=== PATIENT | female | born 1980 | race American Indian/Alaskan Native ===

== ENCOUNTER 2019-02-04 23:00 | Emergency (ER) | payer SELFPAY ==
[2019-02-04 23:05] VITALS: BMI 27.4
[2019-02-04 23:09] VITALS: RESP 18; TEMP 98; O2SAT 100
[2019-02-04] MEDS ORDERED: Sodium Chloride 0.9% 1,000 ML IV STA (23:12)
[2019-02-04] MEDS: Albuterol-Ipratrop 3 mg / 0.5 (3 ml) UD IH SCH ×3 (23:15→23:51)
--- NOTE | 2019-02-04 23:17 | ED PDOC ---
Arrival/HPI <Reji Madera - Last Filed: 02/05/19 00:07> - General Historian: Patient - History of Present Illness Narrative History of Present Illness (Text): 02/04/19 23:14 38 y/o female with PMH of asthma presents to the ED c/o SOB and chest tightness x 2 days. States symptoms feel like her asthma. Associated intermittent lightheadedness, sore throat, and productive cough. She has been using her albuterol nebulizer without relief, she thinks it may be . No recent travel or sick contacts. Denies fever, chills, abdominal pain, nausea, vomiting, chest pain, syncope, palpitations, calf pain or swelling, hemoptysis, back pain, neck pain, drooling, throat swelling, visual changes, numbness, weakness, paresthesias, or any other associated complaints. <Christine Bowser - Last Filed: 02/05/19 15:08> - General Chief Complaint: Shortness Of Breath Time Seen by Provider: 02/04/19 23:01 Past Medical History - Provider Review Nursing Documentation Reviewed: Yes - Cardiac Hx Cardiac Disorders: No - Pulmonary Hx Respiratory Disorders: Yes Hx Asthma: Yes Hx Bronchitis: Yes - HEENT Hx HEENT Disorder: No - Renal Hx Renal Disorder: No - Endocrine/Metabolic Hx Endocrine Disorders: No - Hematological/Oncological Hx Blood Disorders: No - Integumentary Hx Dermatological Disorder: No - Musculoskeletal/Rheumatological Hx Musculoskeletal Disorders: No - Gastrointestinal Hx Gastrointestinal Disorders: No - Genitourinary/Gynecological Hx Genitourinary Disorders: No - Psychiatric Hx Psychophysiologic Disorder: No Hx Substance Use: No <Christine Bowser - Last Filed: 02/05/19 15:08> Family/Social History - Physician Review Nursing Documentation Reviewed: Yes Family/Social History: No Known Family HX Smoking Status: Never Smoked Hx Alcohol Use: Yes Frequency of alcohol use: Socially Hx Substance Use: No <Christine Bowser - Last Filed: 02/05/19 15:08> Allergies/Home Meds <Reji Madera - Last Filed: 02/05/19 00:07> <Christine Bowser - Last Filed: 02/05/19 15:08> Allergies/Adverse Reactions: Allergies No Known Allergies Allergy (Verified 02/04/19 23:05) Review of Systems - Review of Systems Constitutional: Normal Eyes: Normal ENT: Sore Throat, Sinus Congestion. absent: Hearing Changes, Tinnitus Respiratory: SOB, Cough, Sputum, Wheezing Cardiovascular: Normal. absent: Chest Pain, Palpitations, Syncope Gastrointestinal: Normal. absent: Abdominal Pain, Stool Changes, Nausea, Vomiting, Appetite Changes Genitourinary Female: Normal. absent: Dysuria, Frequency, Vaginal Bleeding, Vaginal Discharge Musculoskeletal: Normal. absent: Back Pain, Neck Pain Skin: Normal. absent: Rash Neurological: Dizziness. absent: Headache, Focal Weakness, Gait Changes, Speech Changes, Facial Droop, Disequilibrium <Christine Bowser - Last Filed: 02/05/19 15:08> Physical Exam Vital Signs Temp Pulse Resp BP Pulse Ox 02/04/19 23:52 98 F 95 H 18 139/85 100 02/04/19 23:06 98 F 94 H 18 154/98 H 100 <Reji Madera - Last Filed: 02/05/19 00:07> Vital Signs Reviewed: Yes Vital Signs Temp Pulse Resp BP Pulse Ox 02/04/19 23:06 98 F 94 H 18 154/98 H 100 Temperature: Afebrile Blood Pressure: Hypertensive Pulse: Regular Respiratory Rate: Normal Appearance: Positive for: Well-Appearing, Non-Toxic, Comfortable Pain Distress: None Mental Status: Positive for: Alert and Oriented X 3 - Systems Exam Head: Present: Atraumatic, Normocephalic Pupils: Present: PERRL Extroacular Muscles: Present: EOMI Conjunctiva: Present: Normal Ears: Present: Normal, NORMAL TM, Normal Canal Mouth: Present: Moist Mucous Membranes Pharnyx: Present: Normal. No: ERYTHEMA, EXUDATE, TONSILS ENLARGED Neck: Present: Normal Range of Motion. No: Meningeal Signs Respiratory/Chest: Present: Wheezes (diffuse, inspiratory and expiratory bilate rally), Decreased Breath Sounds (bilaterally). No: Respiratory Distress, Accessory Muscle Use, Rales, Retracting, Rhonchi, Tachypneic Cardiovascular: Present: Regular Rate and Rhythm, Normal S1, S2 Abdomen: Present: Normal Bowel Sounds. No: Tenderness, Distention, Peritoneal Signs, Rebound, Guarding Back: Present: Normal Inspection. No: CVA Tenderness Upper Extremity: Present: Normal Inspection, Normal ROM, NORMAL PULSES, Neurovascularly Intact, Capillary Refill < 2s. No: Cyanosis, Edema, Temperature Abnormalties Lower Extremity: Present: Normal Inspection, NORMAL PULSES, Normal ROM, Neurovascularly Intact, Capillary Refill < 2 s. No: Edema, CALF TENDERNESS, Ten derness, Swelling, Temperature Abnormalties Neurological: Present: GCS=15, CN II-XII Intact, Speech Normal, Motor Func Grossly Intact, Normal Sensory Function, Gait Normal Skin: Present: Warm, Dry, Normal Color. No: Rashes, Hot Psychiatric: Present: Alert, Oriented x 3, Normal Insight, Normal Concentration, Normal Affect, Normal Mood <Christine Bowser - Last Filed: 02/05/19 15:08> Medical Decision Making - Lab Interpretations Lab Results: PT 10.8 SECONDS (9.4-12.5) 02/04/19 23:00 INR 0.97 02/04/19 23:00 APTT 33.5 Seconds (26.9-38.3) 02/04/19 23:00 Troponin I < 0.01 ng/mL 02/04/19 23:00 Total Bilirubin 0.2 mg/dL (0.2-1.3) 02/04/19 23:00 AST 26 U/L (14-36) 02/04/19 23:00 ALT 7 U/L (7-56) 02/04/19 23:00 Alkaline Phosphatase 68 U/L (38-126) 02/04/19 23:00 Total Protein 7.9 g/dL (5.8-8.3) 02/04/19 23:00 Albumin 4.1 g/dL (3.0-4.8) 02/04/19 23:00 Globulin 3.8 gm/dL 02/04/19 23:00 Albumin/Globulin Ratio 1.1 (1.1-1.8) 02/04/19 23:00 Urine Color Light red (YELLOW) 02/04/19 23:34 Urine Appearance Cloudy (CLEAR) 02/04/19:34 Urine pH 8.0 (4.7-8.0) 02/04/19 23:34 Ur Specific [place] 1.020 (1.005-1.035) 02/04/19 23:34 Urine Protein 30 mg/dL (<30 mg/dL) H 02/04/19 23:34 Urine Glucose (UA) Negative mg/dL (NEGATIVE) 02/04/19 23:34 Urine Ketones Negative mg/dL (NEGATIVE) 02/04/19 23:34 Urine Blood Large (NEGATIVE) H 02/04/19 23:34 Urine Nitrate Negative (NEGATIVE) 02/04/19 23:34 Urine Bilirubin Negative (NEGATIVE) 02/04/19 23:34 Urine Urobilinogen 0.2 E.U./dL (<1 E.U./dL) 02/04/19 23:34 Ur Leukocyte Esterase Trace [place]/uL (NEGATIVE) H 02/04/19 23:34 Urine HCG, Qual Negative (NEGATIVE) 02/04/19 23:34 Urine HCG, Qual Negative (NEGATIVE) 02/04/19 23:34 - RAD Interpretation Radiology Orders: 02/04/19 23:12 CHEST PORTABLE [RAD] Stat - Medication Orders Current Medication Orders: Sodium Chloride (Sodium Chloride 0.9%) 1,000 mls @ 999 mls/hr IV .Q1H1M STA Stop: 02/05/19 00:12 Last Admin: 02/04/19 23:41 Dose: 999 mls/hr eMAR Start Stop Document 02/04/19 23:41 ROBBIN (Rec: 02/04/19 23:42 ROBBIN [id number]) Intravenous Solution Start Date 02/04/19 Start Time 23:41 End Date 02/05/19 End time 00:42 Total Infusion Time 61 Discontinued Medications Albuterol/Ipratropium (Duoneb 3 Mg/0.5 Mg (3 Ml) Ud) 3 ml IH Q15M SHAMAR Stop: 02/04/19 23:46 Last Admin: 02/04/19 23:51 Dose: 3 ml Methylprednisolone (Solu-Medrol) 125 mg IVP STAT STA Stop: 02/04/19 23:13 Last Admin: 02/04/19 23:41 Dose: 125 mg IVP Administration Document 02/04/19 23:41 LA (Rec: 02/04/19 23:41 LA [id number]) Charges for Administration # of IVP Administrations 1 <Reji Madera - Last Filed: 02/05/19 00:07> ED Course and Treatment: 02/04/19 23:20 Initial Plan: * CBC, CMP * Coags * UA * Troponin * EKG * CXR * IVF * Solumedrol * Duoneb x 3 EKG shows NSR at 91 without STEMI or other ischemic changes Bloodwork reviewed, unremarkable UA shows no infection Troponin negative CXR negative for active disease as read by me Patient reports improvement in symptoms with duonebs and steroid. States the duonebs made her feel slightly anxious. Lung exam has improved. Decreased wheezing bilaterally. Diagnostic testing results and plan of care discussed with patient. Strict instructions given regarding prescription use, importance of followup, and signs/symptoms to return to ER including fever, chest pain, abdominal pain, or any other new/worsening symptoms. Pt verbalized understanding of discussion. Patient is A&Ox3, ambulating with steady gait, with vital signs stable for discharge. - Lab Interpretations Lab Results: 02/04/19 23:00 02/04/19 23:00 Lab Results 02/04/19 23:34: Grp A Beta Strep Ag Negative 02/04/19 23:34: Influenza Typ A,B (EIA) Negative for flu a/b 02/04/19 23:34: Urine Color Light red, Urine Appearance Cloudy, Urine pH 8.0, Ur Specific [place] 1.020, Urine Protein 30 H, Urine Glucose (UA) Negative, Urine Ketones Negative, Urine Blood Large H, Urine Nitrate Negative, Urine Bilirubin Negative, Urine Urobilinogen 0.2, Ur Leukocyte Esterase Trace H, Urine RBC Tntc H, Urine WBC 2 - 5, Ur Epithelial Cells 6 - 8 H, Urine Bacteria Few, Urine HCG, Qual Negative 02/04/19 23:00: PT 10.8, INR 0.97, APTT 33.5 02/04/19 23:00: Sodium 140, Potassium 4.2, Chloride 104, Carbon Dioxide 28, Anion Gap 12, BUN 12, Creatinine 0.7, Est GFR ( Amer) > 60, Est GFR (Non- Af Amer) > 60, Random Glucose 113 H, Calcium 8.7, Magnesium 2.0, Total Bilirubin 0.2, AST 26, ALT 7, Alkaline Phosphatase 68, Lactate Dehydrogenase 354, Total Creatine Kinase 85, Troponin I < 0.01, Total Protein 7.9, Albumin 4.1, Globulin 3.8, Albumin/Globulin Ratio 1.1 02/04/19 23:00: WBC 8.7, RBC 4.09, Hgb 11.4 L, Hct 35.2 L, MCV 86.1, MCH 27.9, MCHC 32.4, RDW 14.2, Plt Count 297, MPV 9.5, Neut % (Auto) 62.6, Lymph % (Auto) 31.2, [place] % (Auto) 4.4, Eos % (Auto) 1.7, Baso % (Auto) 0.1, Lymph # (Auto) 2.7, [place] # (Auto) 0.4, Eos # (Auto) 0.2, Baso # (Auto) 0.01, Absolute Neuts (auto) 5.43 I have reviewed the lab results: Yes - RAD Interpretation Radiology Orders: 02/04/19 23:12 CHEST PORTABLE [RAD] Stat - EKG Interpretation EKG Interpretation (Text): Rate 91; NSR; Normal intervals; Normal axis; No STEMI or other signs of acute ischemia Interpreted by ED Physician: Yes Type: 12 lead EKG - Medication Orders Current Medication Orders: Albuterol/Ipratropium (Duoneb 3 Mg/0.5 Mg (3 Ml) Ud) 3 ml IH Q15M SHAMAR Stop: 02/04/19 23:46 Sodium Chloride (Sodium Chloride 0.9%) 1,000 mls @ 999 mls/hr IV .Q1H1M STA Stop: 02/05/19 00:12 Methylprednisolone (Solu-Medrol) 125 mg IVP STAT STA Stop: 02/04/19 23:13 <Christine Bowser - Last Filed: 02/05/19 15:08> - PA / [employer] TOBACCO / Resident Statement /DO has reviewed & agrees with the documentation as recorded. <Reji Madera - Last Filed: 02/05/19 00:07> Disposition/Present on Arrival <Reji Madera - Last Filed: 02/05/19 00:07> - Present on Arrival Any Indicators Present on Arrival: No History of DVT/PE: No History of Uncontrolled Diabetes: No Urinary Catheter: No History of Decub. Ulcer: No History Surgical Site Infection Following: None - Disposition Have Diagnosis and Disposition been Completed?: Yes Disposition Time: 01:10 Patient Plan: Discharge <Christine Bowser - Last Filed: 02/05/19 15:08> - Disposition Diagnosis: Asthma exacerbation, Lower resp. tract infection Disposition: HOME/ ROUTINE Condition: IMPROVED Discharge Instructions (ExitCare): Asthma, Adult (DC), Acute Bronchitis, Adult (DC) Additional Instructions: Prednisone 2 tabs daily for 4 days Azithromycin 1 tab daily for 4 more days Ventolin 2 puffs every 6 hours as needed Increase fluids Followup with primary doctor tomorrow Return to ER with any new/worsening symptoms Prescriptions: Albuterol Sulfate [Ventolin Hfa] 2 puff IH Q6 #1 pump Azithromycin [Zithromax] 250 mg PO DAILY #4 tab predniSONE [predniSONE Tab] 40 mg PO DAILY #8 tab Referrals: [facility] [place] [Outside] - Follow up with primary Tracee Condon MD [Medical Doctor] - Follow up with primary Forms: [facility] (Azerbaijani), WORK NOTE
[2019-02-04 23:32] LABS: BASO # 0.01 K/mm3 (0.0-2.0); BASO % 0.1 % (0.0-3.0); EOS # 0.2 (0.0-0.7); EOS % 1.7 % (1.5-5.0); HEMOGLOBIN 11.4 g/dL (12.0-16.0); LYMPH # 2.7 (1.2-3.4); LYMPH % 31.2 % (22.0-35.0); MEAN CELL VOLUME 86.1 fl (80.0-105.0); MEAN CORPUSCULAR HEMOGLOBIN 27.9 pg (25.0-35.0); MEAN CORPUSCULAR HGB CONC 32.4 g/dl (31.0-37.0); MEAN PLATELET VOLUME 9.5 fl (7.0-11.0); MONO # 0.4 (0.1-0.6); MONO % 4.4 % (1.0-6.0); RBC 4.09 10^6/uL (3.5-6.1); RED CELL DISTRIBUTION WIDTH 14.2 % (11.5-14.5); WHITE BLOOD COUNT 8.7 10^3/uL (4.5-11.0)
[2019-02-04 23:43] LABS: ALB/GLOB RATIO 1.1 (1.1-1.8); ALBUMIN 4.1 g/dL (3.0-4.8); ALT/SGPT 7 U/L (7-56); AST/SGOT 26 U/L (14-36); BLOOD UREA NITROGEN 12 mg/dL (7-21); CALCIUM 8.7 mg/dL (8.4-10.5); GFR NON-AFRICAN AMERICAN > 60
[2019-02-04 23:45] LABS: INR 0.97; PARTIAL THROMBOPLASTIN TIME 33.5 Seconds (26.9-38.3); PROTHROMBIN TIME 10.8 SECONDS (9.4-12.5)
[2019-02-04 23:54] LABS: URINE BILIRUBIN NEGATIVE (NEGATIVE); URINE BLOOD LARGE (NEGATIVE); URINE GLUCOSE (UA) NEGATIVE (NEGATIVE); URINE LEUKOCYTE ESTERASE TRACE Leu/uL (NEGATIVE); URINE PROTEIN 30 mg/dL (<30 mg/dL); URINE UROBILINOGEN 0.2 E.U./dL (<1 E.U./dL)
[2019-02-04 23:54] LABS: TROPONIN I < 0.01 ng/mL
[2019-02-05] LABS: HCG,QUALITATIVE URINE NEGATIVE (NEGATIVE)
[2019-02-05 00:01] LABS: URINE APPEARANCE CLOUDY (CLEAR); URINE COLOR LIGHT RED (YELLOW)
[2019-02-05 00:20] LABS: URINE RBC TNTC /hpf (0-2)
[2019-02-05 00:21] LABS: URINE BACTERIA FEW /hpf
[2019-02-05 01:08] VITALS: BP 127/84; PULSE 105
--- NOTE | 2019-02-05 10:16 | RAD ---
Date of service: 02/04/2019 HISTORY: cough, SOB COMPARISON: No prior. TECHNIQUE: 1 view obtained. FINDINGS: LUNGS: No active pulmonary disease. PLEURA: No significant pleural effusion identified, no pneumothorax apparent. CARDIOVASCULAR: No aortic atherosclerotic calcification present. Normal cardiac size. No pulmonary vascular congestion. OSSEOUS STRUCTURES: No significant abnormalities. VISUALIZED UPPER ABDOMEN: Normal. OTHER FINDINGS: None. IMPRESSION: No active disease.
--- NOTE | 2019-02-05 10:49 | CARD ---
APPROVED REPORT Date of service: 02/04/2019 EKG Measurement Heart [id number] <Conclusion> Normal sinus rhythm Normal ECG
== END 2019-02-05 02:04 | disposition home or self-care (01) ==
LOC: ED 23:00
DX: J45.901 Unspecified asthma with (acute) exacerbation (principal); J22 Unspecified acute lower respiratory infection
CPT/HCPCS: 71045; 80053; 81001; 81025; 82550; 83615; 83735; 84484; 84703; 85025; 85610; 85730; 87070; 87086; 87430; 87804; 93005; 96361; 96374; 99284; J2930; J7030